=== PATIENT | male | born 1980 | race Caucasian/White ===

== ENCOUNTER 2021-12-01 08:04 | Emergency (ER) | payer OTHER, SELFPAY ==
--- NOTE | ~2021-12-01 | XR_ITS ---
EXAMINATION: XR chest 2V DATE: 12/01/2021 08:26 INDICATION: Left-sided chest pain TECHNIQUE: PA and lateral views of the chest were obtained. COMPARISON: None FINDINGS: The lungs are clear with no focal airspace opacities, pulmonary edema, pleural effusion or pneumothor ax. The cardiomediastinal silhouette is normal. Visualized bones and soft tissues are unremarkable. IMPRESSION: 1. No acute cardiopulmonary disease. Reviewed, dictated and finalized at location D.
--- NOTE | 2021-12-01 08:15 | ECG_ITS ---
Measurements Intervals [place] Rate: 100 P: 52 IL: 147 QRS: 52 QRSD: 88 T: 47 QT: 340 QTc: 440 Interpretive Statements SINUS TACHYCARDIA POSSIBLE LEFT ATRIAL ENLARGEMENT BASELINE ARTIFACT- I, II, III, AVR, AVL, AVF BORDERLINE ECG Electronically Signed On 12-01-2021 8:30:15 CDT by Zeeshan Zimmerman D.O.
[2021-12-01 08:16] VITALS: BP 148/96; PULSE 121; RESP 18; TEMP 36.4; O2SAT 100
[2021-12-01 08:22] VITALS: PULSE 121
[2021-12-01 08:23] LABS: Basophils Absolute Auto 0.1 K/mm3 (0.0-0.1); Basophils Percent Auto 1.1 % (0.2-1.2); Eosinophils Absolute Auto 0.1 K/mm3 (0-0.3); Eosinophils Percent Auto 1.5 % (0-4.4); Hematocrit 49.4 % (42.0-52.0); Hemoglobin 16.4 g/dL (14.0-18.0); Immature Granulocyte Absolute 0.02 K/mm3 (0.00-0.031); Immature Granulocyte Percent A 0.2 % (0-0.5); Lymphocytes Absolute Auto 3.37 K/mm3 (0.9-3.2); Lymphocytes Percent Auto 41.9 % (18.3-44.2); Mean Corpuscular HGB Conc 33.2 g/dl (32-36); Mean Corpuscular Hemoglobin 34.4 pg (26-34); Mean Corpuscular Volume 103.6 fl (80-100); Mean Platelet Volume 9.2 fl (7.4-10.4); Monocytes Absolute Auto 0.5 K/mm3 (0.1-0.6); Monocytes Percent Auto 6.5 % (2.6-8.5); Neutrophils Absolute Auto 3.9 K/mm3 (1.3-6.7); Neutrophils Percent Auto 48.8 % (45.5-73.1); Platelet Count Result 341 k/mm3 (150-375); Red Blood Count 4.77 M/mm3 (4.6-6.20); Red Cell Distribution Width 14.7 % (11.5-14.5)
[2021-12-01 08:35] LABS: Prothrombin Time 12.7 Seconds (11.1-14.7)
[2021-12-01 08:36] LABS: Partial Thromboplastin Time 25.7 SECONDS (22.3-36.8)
[2021-12-01 08:37] LABS: Alanine Aminotransferase 37 U/L (6-50); Albumin Level 4.5 g/dL (3.5-5.1); Alkaline Phosphatase 94 U/L (38-126); Anion Gap 12 mmol/L (8-16); Aspartate Amino Transferase 39 U/L (17-59); Bilirubin,Total 0.6 mg/dL (0.2-1.3); Blood Urea Nitrogen 7 mg/dL (9-20); Carbon Dioxide 25 mmol/L (22-30); Chloride 102 mmol/L (98-107); Estimated CRCL calculation 141 ml/min; Estimated Glomerular Filt Rate > 60; Glucose 136 mg/dL (65-110); Lipase 86 U/L (23-300); Potassium 3.3 mmol/L (3.4-5.0); Sodium 139 mmol/L (137-145)
[2021-12-01] MEDS: LACTATED RINGERS 1,000 ML 999 ML IV CONT (08:37)
[2021-12-01] MEDS: ASPIRIN 81 MG CHEWABLE TABLET 324 MG PO (08:38)
[2021-12-01 08:39] VITALS: PULSE 103; RESP 15; O2SAT 97
[2021-12-01] MEDS: POTASSIUM CHLORIDE 20 MEQ TABLET 40 MEQ PO (08:42)
[2021-12-01 08:47] LABS: Troponin I < 0.012 ng/mL (0.000-0.034)
--- NOTE | 2021-12-01 08:50 | ED.GENADULT ---
HPI - General Adult General Chief complaint: Extremity Problem,Nontraumatic Stated complaint: low K? Time Seen by Provider: 12/01/21 08:20 Source: patient and RN notes reviewed Mode of arrival: ambulatory Limitations: no limitations History of Present Illness HPI narrative: This is a 41 year old male with history of hypokalemia, alcoholism who presents for evaluation of leg cramping. PAtient states he was admitted to OSH 1- 2 months ago for leg cramping and weakness. He thinks his potassium may be low again. He has been having bilateral leg cramping for 3 days, and he has been out of his potassium supplementation. Patient mentioned to triage he has chest pain last night but he is not concerned with it. He states last night he was laying in bed with he had nonradiating left chest pain that lasted 2 minutes. He denies associated, nausea, vomiting , sob, diaphoresis with his chest pain. He denies having chest pain today. He denies leg numbness or tingling. He does states he stopped drink alcohol after his last hospitalization, but he started drinking last night due to his leg pain. Related Data Home Medications Medication Instructions Recorded Confirmed amlodipine 10 mg tablet tablet 12/01/21 atorvastatin 20 mg tablet tablet 12/01/21 buspirone 10 mg tablet tablet 12/01/21 doxepin 10 mg capsule cap 12/01/21 folic acid 1 mg tablet tablet 12/01/21 potassium chloride 40 mEq/15 mL ea 12/01/21 oral liquid thiamine HCl (vitamin B1) 100 mg 100 mg PO DAILY 12/01/21 tablet (Vitamin B-1) Allergies Allergy/AdvReac Type Severity Reaction Status Date / Time Penicillins Allergy Unknown Verified 12/01/21 08:13 Review of Systems Review of Systems: All systems reviewed & are unremarkable except as noted in HPI and below Eyes: Eyes: Denies blurry vision and Denies loss of vision Cardiovascular: Cardiovascular: Reports chest pain, Denies rapid heart rate, Denies radiating jaw, neck or arm pain and Denies slow heart rate Respiratory: Respiratory: Denies chest congestion, Denies cough and Denies dyspnea Gastrointestinal: Gastrointestinal: Denies abdominal pain, Reports diarrhea, Denies nausea and Denies vomiting Musculoskeletal: Musculoskeletal: Denies joint swelling and Reports muscle cramps Integumentary/Breasts: Skin/Breast: Denies pruritus, Denies erythema and Denies rash PMFSH Past Medical History Medical History (Updated 12/01/21 @ 09:43 by Faith Guevara MD) Alcoholism Depression Hypertension Hypokalemia Surgical History Surgical History (Updated 12/01/21 @ 08:57 by Faith Guevara MD) History of appendectomy Social History Social History (Updated 12/01/21 @ 08:58 by Faith Guevara MD) Smoking packs per day: 1 Smoking cigarettes per day: 20.0 Smoking status: Current every day smoker Alcohol intake: current Exam Narrative: GENERAL: Well-appearing, well-nourished, and in no acute distress. HEAD: Normocephalic, atraumatic EYES: PERRLA and EOMI, conjunctiva clear without discharge EARS: TM's clear bilaterally without erythema or dullness NOSE: Nares clear, no rhinorrhea or epistaxis THROAT:Mucous membranes moist, Oropharynx normal without erythema, exudate, peritonsillar swelling or fluctuance NECK: Supple, without lymphadenopathy or mass RESPIRATORY: No respiratory distress, Airway patent, Respirations non-labored, Clear to auscultation without rales, rhonchi or wheeze HEART: Regular rate and rhythm. No murmur heard. Normal peripheral pulses. ABDOMEN: Soft, nontender, nondistended, normal active bowel sounds. No masses. No rebound or guarding, No organomegaly. EXTREMITIES: No edema, normal strength with full range of motion. SKIN: Warm, dry, normal color without rash NEURO: Alert and oriented x3. CN 2-12 grossly intact. No focal deficits. PSYCH: Normal mood and affect. Course Reevaluation(s) Reevaluation #1: I discussed with patient labs and he was given
[2021-12-01 08:51] LABS: Creatine Kinase 61 U/L (55-170); Magnesium 1.6 mg/dL (1.6-2.3)
[2021-12-01 09:55] VITALS: BP 128/88; PULSE 93; RESP 20; O2SAT 97
== END 2021-12-01 09:56 | disposition home or self-care (01) ==
PROVIDERS: Emergency Provider General Practice; PCP Nurse Practitioner Family
DX: R25.2 Cramp and spasm (principal); E87.6 Hypokalemia; F32.A Depression, unspecified; I10 Essential (primary) hypertension; F10.20 Alcohol dependence, uncomplicated; R00.0 Tachycardia, unspecified; R94.31 Abnormal electrocardiogram [ECG] [EKG]
CPT/HCPCS: 36415; 71046; 80053; 82550; 83690; 83735; 84484; 85025; 85610; 85730; 93005; 96360; 99284; A9270; J7120